=== PATIENT | male | born 1945 | race Caucasian/White ===

== ENCOUNTER 2016-08-27 07:03 | Day surgery (SDC) | payer OTHER ==
[2016-08-27] MEDS ORDERED: PROPOFOL 500 MG/50 ML VIAL IV ONE (08:00)
[2016-08-27] MEDS ORDERED: LACTATED RINGERS 1,000 ML IV.SOLN IV ONE (08:00)
[2016-08-27] MEDS ORDERED: SALINE FLUSH 10 ML DISP.SYRIN IVF ONE (08:00)
[2016-08-27] MEDS ORDERED: LIDOCAINE HCL/PF 2% 100 MG/5 ML VIAL IJ ONE (08:00)
--- NOTE | 2016-08-27 15:44 | GI Report ---
REFERRING PHYSICIAN: MYLA Mendoza [id number] DEVELOPER: Erik Walter MD PROCEDURE MEDICATION: Propofol as per anesthesia. INDICATIONS: This 71-year-old man has had polyps in the past and a family history of colon cancer in a brother. PROCEDURE PERFORMED: Colonoscopy with polypectomy. PROCEDURE: An Olympus video colonoscope was advanced to the rectum. He has moderate diverticular disease of the sigmoid colon. The colonoscope was slowly advanced all the way to the cecum. The appendiceal orifice and terminal ileum were normal. On slow withdrawal, the cecum, ascending colon, and transverse colon with no obvious intraluminal lesions noted. The descending colon was normal until you get to 50 cm and there was a 2 to 3 mm flat polyp removed with a cold snare and then there was a second polyp at 30 cm removed with a cold snare. Retroflexion of the rectum was normal. Patient tolerated the procedure well. FINDINGS: 1. Two polyps removed between 30 and 50 cm in the left colon. 2. Moderate diverticular disease of his sigmoid colon. RECOMMENDATIONS: 1. A high-fiber diet. 2. Consider re-looking at his colon in 5 years because of the polyps and a family history of colon cancer in his brother. cc: MYLA Mendoza MTDJaclyn
== END 2016-08-27 07:04 ==
LOC: OPSURG 07:03
PROVIDERS: ATTEND Internal Medicine Gastroenterology
DX: Z86.010 Personal history of colon polyps (principal); Z80.0 Family history of malignant neoplasm of digestive organs; D12.4 Benign neoplasm of descending colon; K57.30 Diverticulosis of large intestine without perforation or abscess without bleeding
CPT/HCPCS: J2001; J2704; J7120; 45385; S1016